=== PATIENT | male | born 2000 | race American Indian/Alaskan Native ===

== ENCOUNTER 2020-12-27 19:24 | Emergency (ER) | payer MEDICAID ==
[2020-12-27 19:42] VITALS: BP 131/84
--- NOTE | 2020-12-27 20:06 | Emergency Department Report ---
ED Upper Extremity Inj HPI - General Chief Complaint: Extremity Injury, Upper Stated Complaint: LT WRIST INJURY Time Seen by Provider: 12/27/20 19:33 Source: patient Mode of arrival: Ambulatory Limitations: No Limitations - History of Present Illness Initial Comments: Patient is a 20-year-old male who presents emergency room with complaints of a left wrist injury that occurred last night. Patient states that he got angry and punched a door. He denies any pain in his digits of his hand. He denies ever injuring in the past. He has a ticw-xde-ngiqmge wrist splint on which she states that he picked up last night after he punched the door. He denies any other injury. He denies anyone injuring him. He denies any numbness or weakness. He states he has pain with extension of the wrist. No past medical history. No allergies medications. - Related Data Previous Rx's Medication Instructions Recorded Last Taken Type Naproxen [EC-Naprosyn] 500 mg PO BID PRN #20 tablet. 12/27/20 Unknown Rx Allergies Allergy/AdvReac Type Severity Reaction Status Date / Time No Known Allergies Allergy Unverified 12/27/20 19:42 ED Review of Systems ROS: Stated complaint: LT WRIST INJURY Other details as noted in HPI Comment: All other systems reviewed and negative ED Past Medical Hx - Past Medical History Previous Medical History?: No - Surgical History Past Surgical History?: Yes Additional Surgical History: Knee surgery - Social History Smoking Status: Current Some Day Smoker - Medications Home Medications: Home Medications Medication Instructions Recorded Confirmed Last Taken Type Naproxen [EC-Naprosyn] 500 mg PO BID PRN #20 tablet. 12/27/20 Unknown Rx ED Physical Exam - General Limitations: No Limitations General appearance: alert, in no apparent distress - Head Head exam: Present: atraumatic, normocephalic - Eye Eye exam: Present: normal appearance - ENT ENT exam: Present: mucous membranes moist - Respiratory Respiratory exam: Absent: respiratory distress, accessory muscle use - Extremities Exam Extremities exam: Present: other (ttp to the left lateral wrist and left lateral dorsal hand, no snuffbox ttp, no obvious deformity, there edema and mild ecchymosis, skin is intact, neurovascularly intact) - Neurological Exam Neurological exam: Present: alert, oriented X3 - Psychiatric Psychiatric exam: Present: normal affect, normal mood - Skin Skin exam: Present: warm, dry, intact ED Course Vital Signs 12/27/20 12/27/20 19:41 19:43 Temperature 98.3 F 98.3 F Pulse Rate 78 78 Respiratory 18 18 Rate Blood Pressure 131/84 Blood Pressure 131/84 [Right] O2 Sat by Pulse 98 98 Oximetry ED Medical Decision Making - Radiology Data Radiology results: report reviewed Ordering Physician: RAMONA MENG Date of Service: 12/27/20 Procedure(s): XR wrist 3+V LT Accession Number(s): [id number] cc: RAMONA MENG Fluoro Time In Minutes: . XR hand 2V LT, XR wrist 3+V LT INDICATION / CLINICAL INFORMATION: punched a door, left hand/wrist pain. COMPARISON: None available. FINDINGS: There is subtle irregularity seen along the medial aspect the dorsal radius seen on series 4. Normal alignment. Joint spaces are preserved. No destructive osseous lesion or suspicious periosteal reaction. Impression: 1. There is subtle irregularity of the medial dorsal radial cortex concerning for a nondisplaced radial metaphyseal fracture. Correlate with point tenderness. Signer Name: Rj Irwin MD Signed: 12/27/2020 8:43 PM Workstation Name: [id number] Transcribed By: CS Dictated By: Rj Irwin MD Electronically Authenticated By: Rj Irwin MD Signed Date/Time: 12/27/202042 DD/ 36 TD/TT: - Medical Decision Making Patient is a 20-year-old male who presents emergency room with complaints of a left wrist injury that occurred last night. Patient states that he got angry and punched a door. He denies any pain in his digits of his hand. He denies ever injuring in the past. He has a qifq-rsm-yqlewps wrist splint on which she states that he picked up last night after he punched the door. He denies any other injury. He denies anyone injuring him. He denies any numbness or weakness. He states he has pain with extension of the wrist. No past medical history. No allergies medications. Vitals are normal. On exam: ttp to the left lateral wrist and left lateral dorsal hand, no snuffbox ttp, no obvious deformity, there edema and mild ecchymosis, skin is intact, neurovascularly intact. X-ray left hand and left wrist: 1. There is subtle irregularity of the medial dorsal radial cortex concerning for a nondisplaced radial metaphyseal fracture. Correlate with point tenderness. Patient does have point tenderness palpation in this region, patient will be placed in a radial gutter splint and referred to orthopedic. Discussed all results with patient and answered quest ions. pt placed in splint by nurse supervisor and remained neurovascular intact. Patient can prescription for naproxen. Advised patient Please take medication as prescribed. Please do not remove splint. Follow-up with orthopedic doctor. It is very important that you follow-up. Return to emergency room for new or worsening symptoms. Critical care attestation.: If time is entered above; I have spent that time in minutes in the direct care of this critically ill patient, excluding procedure time. ED Disposition Clinical Impression: Distal radius fracture Qualifiers: Encounter type: initial encounter Fracture type: closed Fracture morphology: unspecified fracture morphology Laterality: left Qualified Code(s): S52.502A - Unspecified fracture of the lower end of left radius, initial encounter for closed fracture Disposition: DC- TO HOME OR SELFCARE Is pt being admited?: No Does the pt Need Aspirin: No Condition: Stable Instructions: Radial Fracture Additional Instructions: Please take medication as prescribed. Please do not remove splint. Follow-up with orthopedic doctor. It is very important that you follow-up. Return to emergency room for new or worsening symptoms. Prescriptions: Naproxen [EC-Naprosyn] 500 mg PO BID PRN #20 tablet.dr MCDOWELL Reason: pain Referrals: [facility] [Provider Group] - 2-3 Days ROBI FLORES MD [Staff Physician] - 2-3 Days LINDA GENTILE MD [Primary Care Provider] - 2-3 Days Time of Disposition: 20:51 Print Language: LITHUANIAN
--- NOTE | 2020-12-27 20:47 | XRay Report ---
. XR hand 2V LT, XR wrist 3+V LT INDICATION / CLINICAL INFORMATION: punched a door, left hand/wrist pain. COMPARISON: None available. FINDINGS: There is subtle irregularity seen along the medial aspect the dorsal radius seen on series 4. Normal alignment. Joint spaces are preserved. No destructive osseous lesion or suspicious periosteal react ion. Impression: 1. There is subtle irregularity of the medial dorsal radial cortex concerning for a nondisplaced radi al metaphyseal fracture. Correlate with point tenderness. Signer Name: Rj Irwin MD Signed: 12/27/2020 8:43 PM Workstation Name: [id number]
== END 2020-12-27 21:15 | disposition home or self-care (01) ==
LOC: ED 19:24
DX: S52.502A Unspecified fracture of the lower end of left radius, initial encounter for closed fracture (principal); M25.532 Pain in left wrist; F17.200 Nicotine dependence, unspecified, uncomplicated; Z98.890 Other specified postprocedural states; Z79.899 Other long term (current) drug therapy; W26.8XXA Contact with other sharp object(s), not elsewhere classified, initial encounter; Y93.89 Activity, other specified; Y92.89 Other specified places as the place of occurrence of the external cause; Y99.8 Other external cause status